=== PATIENT | female | born 1980 | race Caucasian/White ===

== ENCOUNTER 2017-02-26 17:23 | Emergency (ER) | payer MEDICAID ==
[2017-02-26 17:29] VITALS: BP 136/93
--- NOTE | 2017-02-26 17:47 | ERNOTE ---
Headache ER HPI - General Presenting Symptoms: headache Time Seen by Provider: 02/26/17 17:25 Source: patient Exam Limitations: no limitations - Immun/Allergies/Home Medications Immunizations: IMMUNIZATION HX Immunizations Up to Date Yes History of Influenza Vaccine No Hx Pneumococcal Vaccination No Allergies/Adverse Reactions: Allergies Sulfa (Sulfonamide Antibiotics) Allergy (Verified 02/26/17 17:29) hallucinations prednisone Adverse Reaction (Intermediate, Verified 02/26/17 17:29) Other Home Medications: HOME MEDICATIONS Butalb/Acetaminophen/Caffeine [Esgic 50-325-40 mg Tablet] 1 each PO BID PRN #20 tablet 02/26/17 [Last Taken Unknown] Ibuprofen [Motrin] 800 mg PO TID PRN #30 tab 02/26/17 [Last Taken Unknown] Lurasidone HCl [Latuda] 80 mg PO DAILY 02/26/17 [Last Taken Unknown] - Pain Pain Score: 4 - History of Present Illness Narrative: Patient presents with a headache that started approximately a week to 10 days ago. She describes a muscle tension in her neck and the base of her skull then ran radiates over the surface of the skull all the way up to the forehead area. She states the pain never gets worse than a 4 or a 5 . Timing of Headache: gradual, constant Quality: Present: other - pulling sensation Severity Maximum: Present: moderate Severity-Currently: Present: moderate Headache frequency: Present: no recent headache Modifying Factors - (Improves): Reports: medication - ibuprofen for a period of time Associated Symptoms: Reports: denies symptoms Review of Systems - Review of Systems Constitutional: Present: See HPI EYE: Present: no symptoms reported ENT: Present: no symptoms reported Respiratory: Present: no symptoms reported Cardiology: Present: no symptoms reported Gastrointestinal/Abdominal: Present: no symptoms reported Genitourinary: Present: no symptoms reported Musculoskeletal: Present: muscle pain, muscle stiffness Skin: Present: no symptoms reported Neurological: Present: no symptoms reported Endocrine: Present: no symptoms reported Hematologic/Lymphatic: Present: no symptoms reported Psych: Present: no symptoms reported - Patient's Past Medical History Patient History - Medical: Bipolar, Other - Graves' disease Patient History - Cardiac/Respiratory: No pertinent hx Patient History - Cancer: No Hx of Cancer Patient History - Surgical Procedures: No surgical history, Tubal Ligation Patient History - Other: None LMP (females 10-50): last week - Social History Living Situations: home Psych History: Hx of Bipolar Disorder Smoking Status: Current every day smoker - Immunizations Immunizations Up to Date: Yes Hx Pneumococcal Vaccination: No History of Influenza Vaccine: No Physical Exam - Physical Exam General Appearance: Present: wd/wn, alert, mild distress Eye Exam: Normal inspection: bilateral, PERRL: bilateral Ears, Nose, Throat: Present: normal ENT inspection, H, normal pharynx Neck: Present: normal inspection, nontender, other - patient has palpable tenderness at the trapezius muscle up into the occipitalis muscle and over around through the frontalis muscle Respiratory: Present: no respiratory distress, normal breath sounds, no accessory muscle use, chest nontender, lungs clear Cardiovascular/Chest: Present: regular rate, rhythm, no murmur, normal peripheral pulses Gastrointestinal/Abdominal: Present: normal bowel sounds, nontender, nondistended, soft, no organomegaly Rectal Exam: Present: deferred Back Exam: Present: normal inspection, normal range of motion Extremity Exam: Present: normal inspection, non-tender, no edema, normal range of motion Neurological Exam: Present: alert, oriented, normal mood/affect Skin Exam: Present: normal color, warm/dry Lymphatic Exam: Present: no adenopathy ED Progress - Vital Signs Patient's Vital Signs:: I have reviewed the patient's vital signs. Vital Signs: Vital Signs 02/26/17 17:26 Temperature 36.5 C Pulse Rate 58 L Respiratory 16 Rate Blood Pressure 136/93 O2 Sat by Pulse 99 Oximetry - Progress/Reassessment Chief Complaint: Headache Plan - Plan Plan: Patient will be started on Esgic plus and a prescription for ibuprofen 800 mg was given. She was told that she could try massage which should help for that as well and she agrees to follow-up with her family physician. Departure Clinical Impression: Tension headache - Departure Disposition: Home self-care Condition: Good Instructions: Tension Headache, [id number] Referrals: Gaby Chand MD [Primary Care Provider] - Prescriptions: Butalb/Acetaminophen/Caffeine [Esgic 50-325-40 mg Tablet] 1 each PO BID PRN #20 tablet PRN Reason: Headache Ibuprofen [Motrin] 800 mg PO TID PRN #30 tab PRN Reason: Headache
== END 2017-02-26 17:47 | disposition home or self-care (01) ==
LOC: ER 17:23
DX: G44.209 Tension-type headache, unspecified, not intractable (principal); F17.200 Nicotine dependence, unspecified, uncomplicated; F31.9 Bipolar disorder, unspecified